=== PATIENT | female | born 1960 | race Asian ===

== ENCOUNTER 2017-06-09 07:10 | Inpatient (IN) | payer OTHER ==
[2017-06-09] MEDS: CEFAZOLIN 2 GM/50 ML (PMX) 50 ML IVPB (06:00)
[2017-06-09] MEDS: SOD CHLORIDE 0.9% 1,000 ML IV ×2 (06:00→18:45)
[2017-06-09] MEDS ORDERED: ISOSULFAN BLUE 1% 5 ML INJ SC (10:57)
[2017-06-09] MEDS ORDERED: MIDAZOLAM 1 MG/ML 2 ML INJ (11:27)
[2017-06-09] MEDS ORDERED: PROPOFOL 0 ML (11:32)
[2017-06-09] MEDS ORDERED: SUCCINYLCHOLINE CHLORIDE 100 MG/5 ML SYG IV (11:32)
[2017-06-09] MEDS ORDERED: FENTAnyl 50 MCG/ML VIAL (11:33)
[2017-06-09 14:06] LABS: MAGNESIUM 1.6 mg/dl (1.7-2.5)
[2017-06-09 14:26] LABS: TROPONIN-I 0.033 ng/ml (0.00-0.12)
[2017-06-09 14:29] LABS: ANION GAP 17 (8-16); BLOOD UREA NITROGEN 19 mg/dl (7-20); CARBON DIOXIDE 28 mmol/L (21-31); CHLORIDE 105 mmol/L (97-110); GLUCOSE 156 mg/dl (70-220); POTASSIUM 3.5 mmol/L (3.5-5.1); SODIUM 146 mmol/L (135-144)
[2017-06-09 14:30] LABS: CALCIUM 9.4 mg/dl (8.4-10.2); CREATININE 1.39 mg/dl (0.44-1.00)
[2017-06-09] MEDS: MAGNESIUM SULFATE 4 GM/100 ML 100 ML IVPB (14:41)
[2017-06-09] MEDS: POTASSIUM CHLORIDE (SR) 20 MEQ TAB PO (15:57)
[2017-06-09] MEDS ORDERED: metFORMIN 500 MG TAB PO (18:05)
[2017-06-09] MEDS: CEFAZOLIN 1 GM/50 ML (PMX) 50 ML IVPB (18:43)
[2017-06-09] MEDS: metFORMIN 500 MG TAB PO (18:43)
[2017-06-09] MEDS: LISINOPRIL 5 MG TAB PO (18:44)
[2017-06-09] MEDS: FERROUS SULFATE (EC) 325 MG TAB PO (21:09)
[2017-06-10] MEDS: CEFAZOLIN 1 GM/50 ML (PMX) 50 ML IVPB ×4 (00:39→17:36)
[2017-06-10] MEDS ORDERED: metFORMIN 500 MG TAB PO (08:00)
[2017-06-10 08:41] LABS: ADD MAN DIFF? NO
[2017-06-10 08:47] LABS: BASOPHILS % 0.2 % (0.0-2.0); EOSINOPHILS # 0.1 10^3/ul (0.0-0.5); EOSINOPHILS % 1.4 % (0.0-7.0); HEMATOCRIT 44.4 % (37.0-47.0); HEMOGLOBIN 14.3 g/dl (12.0-16.0); LYMPHOCYTES # 1.5 10^3/ul (0.8-2.9); MEAN CORPUSCULAR HEMOGLOBIN 29.2 pg (29.0-33.0); MEAN CORPUSCULAR HGB CONC 32.2 g/dl (32.0-37.0); MEAN CORPUSCULAR VOLUME 90.8 fl (82.0-101.0); MONOCYTE # 0.6 10^3/ul (0.3-0.9); MONOCYTES % 9.3 % (0.0-11.0); NEUTROPHIL # 3.8 10^3/ul (1.6-7.5); NEUTROPHILS % 63.8 % (39.0-77.0); PLATELET COUNT 145 10^3/UL (140-415); RED BLOOD COUNT 4.89 10^6/ul (4.20-5.40); RED CELL DISTRIBUTION WIDTH 12.6 % (11.5-14.5)
[2017-06-10 08:47] LABS: WHITE BLOOD COUNT 5.9 10^3/ul (4.8-10.8)
[2017-06-10] MEDS: LISINOPRIL 5 MG TAB PO (08:58)
[2017-06-10] MEDS: metFORMIN 500 MG TAB PO ×2 (08:58→12:23)
[2017-06-10] MEDS: ASPIRIN 81 MG TAB PO (08:58)
[2017-06-10] MEDS: METOPROLOL (XL) 100 MG TAB PO (08:58)
[2017-06-10] MEDS: FUROSEMIDE 40 MG TAB PO (08:59)
[2017-06-10] MEDS: FERROUS SULFATE (EC) 325 MG TAB PO ×3 (08:59→20:58)
[2017-06-10] MEDS: AMLODIPINE 10 MG TAB PO (08:59)
[2017-06-10 09:08] LABS: INR 1.06; PROTIME 13.9 Sec (11.9-14.9); PT RATIO 1.1
[2017-06-10 09:09] LABS: PARTIAL THROMBOPLASTIN TIME 34.4 Sec (25.0-35.0)
[2017-06-10 09:24] LABS: FREE T4 (FREE THYROXINE) 1.48 ng/dl (0.64-1.79)
[2017-06-10 09:46] LABS: ALANINE AMINOTRANSFERASE 22 IU/L (13-69); ALBUMIN 3.7 g/dl (3.3-4.9); ALBUMIN/GLOBULIN RATIO 1.02; ALKALINE PHOSPHATASE 82 IU/L (42-121); ANION GAP 16 (8-16); ASPARTATE AMINO TRANSFERASE 29 IU/L (15-46); BILIRUBIN,INDIRECT 0.6 mg/dl (0-1.1); BILIRUBIN,TOTAL 0.6 mg/dl (0.2-1.3); BLOOD UREA NITROGEN 14 mg/dl (7-20); CALCIUM 9.2 mg/dl (8.4-10.2); CARBON DIOXIDE 27 mmol/L (21-31); CHLORIDE 107 mmol/L (97-110); CREATININE 1.26 mg/dl (0.44-1.00); GLUCOSE 126 mg/dl (70-220); MAGNESIUM 2.2 mg/dl (1.7-2.5); POTASSIUM 3.7 mmol/L (3.5-5.1); SODIUM 146 mmol/L (135-144); TOTAL PROTEIN 7.3 g/dl (6.1-8.1)
[2017-06-10 09:51] LABS: B-TYPE NATRIURETIC PEPTIDE 394 PG/ML (0-125)
[2017-06-10 10:35] LABS: THYROID STIMULATING HORMONE 0.525 MIU/L (0.465-4.680)
[2017-06-11] MEDS: CEFAZOLIN 1 GM/50 ML (PMX) 50 ML IVPB ×4 (00:58→17:24)
[2017-06-11] MEDS: metFORMIN 500 MG TAB PO ×2 (08:09→17:24)
[2017-06-11] MEDS: FERROUS SULFATE (EC) 325 MG TAB PO ×3 (08:09→20:18)
[2017-06-11] MEDS: AMLODIPINE 10 MG TAB PO (08:09)
[2017-06-11] MEDS: FUROSEMIDE 40 MG TAB PO (08:09)
[2017-06-11] MEDS: LISINOPRIL 5 MG TAB PO (08:09)
[2017-06-11] MEDS: METOPROLOL (XL) 100 MG TAB PO (08:09)
[2017-06-12] MEDS: CEFAZOLIN 1 GM/50 ML (PMX) 50 ML IVPB ×5 (01:31→23:24)
[2017-06-12 06:14] LABS: ADD MAN DIFF? NO
[2017-06-12 06:27] LABS: BASOPHILS % 0.3 % (0.0-2.0); EOSINOPHILS # 0.1 10^3/ul (0.0-0.5); EOSINOPHILS % 1.9 % (0.0-7.0); HEMATOCRIT 45.2 % (37.0-47.0); HEMOGLOBIN 14.9 g/dl (12.0-16.0); LYMPHOCYTES # 1.4 10^3/ul (0.8-2.9); LYMPHOCYTES % 20.7 % (15.0-51.0); MEAN CORPUSCULAR HEMOGLOBIN 29.3 pg (29.0-33.0); MEAN CORPUSCULAR VOLUME 88.8 fl (82.0-101.0); MEAN PLATELET VOLUME 11.4 fl (7.4-10.4); MONOCYTE # 0.8 10^3/ul (0.3-0.9); MONOCYTES % 10.8 % (0.0-11.0); NEUTROPHIL # 4.6 10^3/ul (1.6-7.5); NEUTROPHILS % 65.9 % (39.0-77.0); PLATELET COUNT 152 10^3/UL (140-415); RED BLOOD COUNT 5.09 10^6/ul (4.20-5.40); RED CELL DISTRIBUTION WIDTH 12.4 % (11.5-14.5)
[2017-06-12 06:42] LABS: ANION GAP 16 (8-16); BLOOD UREA NITROGEN 16 mg/dl (7-20); CALCIUM 9.6 mg/dl (8.4-10.2); CARBON DIOXIDE 30 mmol/L (21-31); CHLORIDE 102 mmol/L (97-110); CREATININE 1.34 mg/dl (0.44-1.00); GLUCOSE 131 mg/dl (70-220); POTASSIUM 3.7 mmol/L (3.5-5.1); SODIUM 144 mmol/L (135-144)
[2017-06-12] MEDS ORDERED: LIDOCAINE 2% (SDV) 5 ML INJ (07:00)
[2017-06-12] MEDS ORDERED: ROCURONIUM 50 MG INJ (07:00)
[2017-06-12] MEDS ORDERED: CEFAZOLIN 1 GM INJ (07:00)
[2017-06-12] MEDS ORDERED: PROPOFOL 200 MG INJ (07:00)
[2017-06-12 07:08] LABS: ALANINE AMINOTRANSFERASE 24 IU/L (13-69); ALBUMIN 3.9 g/dl (3.3-4.9); ALBUMIN/GLOBULIN RATIO 1.02; ALKALINE PHOSPHATASE 85 IU/L (42-121); ANION GAP 17 (8-16); ASPARTATE AMINO TRANSFERASE 31 IU/L (15-46); BILIRUBIN,INDIRECT 0.8 mg/dl (0-1.1); BILIRUBIN,TOTAL 0.8 mg/dl (0.2-1.3); BLOOD UREA NITROGEN 16 mg/dl (7-20); CALCIUM 9.5 mg/dl (8.4-10.2); CARBON DIOXIDE 31 mmol/L (21-31); CHLORIDE 101 mmol/L (97-110); CREATININE 1.36 mg/dl (0.44-1.00); GLUCOSE 130 mg/dl (70-220); POTASSIUM 3.6 mmol/L (3.5-5.1); SODIUM 145 mmol/L (135-144); TOTAL PROTEIN 7.7 g/dl (6.1-8.1)
[2017-06-12] MEDS: FERROUS SULFATE (EC) 325 MG TAB PO ×3 (09:00→20:11)
[2017-06-12] MEDS ORDERED: ISOSULFAN BLUE 1% 5 ML INJ SC (09:21)
[2017-06-12] MEDS ORDERED: morphine 10 MG INJ (09:45)
[2017-06-12] MEDS ORDERED: METOCLOPRAMIDE 10 MG INJ IV (10:00)
[2017-06-12] MEDS ORDERED: FENTAnyl 50 MCG/ML VIAL IV ×3 (10:00)
[2017-06-12] MEDS ORDERED: hydrALAzine 20 MG INJ IV (10:00)
[2017-06-12] MEDS ORDERED: HYDROmorphONE (0.2 MG/ML) 10ML SYG IV ×3 (10:00)
[2017-06-12] MEDS ORDERED: DIPHENHYDRAMINE 50 MG INJ IV (10:00)
[2017-06-12] MEDS ORDERED: LABETALOL HCL 20MG INJ IV (10:00)
[2017-06-12] MEDS ORDERED: EPHEDrine SULFATE 50 MG/5 ML SYG IV (10:00)
[2017-06-12] MEDS ORDERED: ALBUTEROL 0.083% (NEB) 2.5 MG/3 ML AMP HHN (10:00)
[2017-06-12] MEDS ORDERED: KETOROLAC 30 MG INJ IV (10:00)
[2017-06-12] MEDS: ISOSULFAN BLUE 1% 5 ML INJ SC (10:10)
[2017-06-12] MEDS ORDERED: PHENYLephrine (100 MCG/ML) 5ML SYG (10:11)
[2017-06-12] MEDS ORDERED: ONDANSETRON 4 MG INJ (10:36)
[2017-06-12] MEDS ORDERED: DEXAMETHASONE 4 MG/ML 1 ML INJ (10:36)
[2017-06-12] MEDS ORDERED: SUGAMMADEX SODIUM 200 MG/2 ML VIAL IV (11:02)
[2017-06-12] MEDS ORDERED: ONDANSETRON 4 MG INJ IV (11:30)
[2017-06-12] MEDS ORDERED: ACETAMINOPHEN 1000MG/100ML IV 100 ML IVPB (11:30)
[2017-06-12] MEDS: ONDANSETRON 4 MG INJ IV (11:35)
[2017-06-12] MEDS: MEPERIDINE 25 MG INJ IV (11:39)
[2017-06-12] MEDS: metFORMIN 500 MG TAB PO ×2 (13:23→18:30)
[2017-06-12] MEDS: METOPROLOL (XL) 100 MG TAB PO (13:24)
[2017-06-12] MEDS: AMLODIPINE 10 MG TAB PO (13:24)
[2017-06-12] MEDS: FUROSEMIDE 40 MG TAB PO (13:25)
[2017-06-12] MEDS: LISINOPRIL 5 MG TAB PO (13:26)
[2017-06-12] MEDS: D5W-0.45 NACL + KCL 20 MEQ 1,000 ML IV ×3 (13:29→23:25)
[2017-06-12] MEDS: POTASSIUM CHLORIDE (SR) 20 MEQ TAB PO (18:31)
[2017-06-13] MEDS: D5W-0.45 NACL + KCL 20 MEQ 1,000 ML IV (03:15)
[2017-06-13] MEDS: CEFAZOLIN 1 GM/50 ML (PMX) 50 ML IVPB (05:23)
[2017-06-13] MEDS: FERROUS SULFATE (EC) 325 MG TAB PO ×3 (09:01→20:18)
[2017-06-13] MEDS: metFORMIN 500 MG TAB PO ×2 (09:02→18:17)
[2017-06-13] MEDS: FUROSEMIDE 40 MG TAB PO (09:03)
[2017-06-13] MEDS: LISINOPRIL 5 MG TAB PO (09:04)
[2017-06-13] MEDS: AMLODIPINE 10 MG TAB PO (09:04)
[2017-06-13] MEDS: METOPROLOL (XL) 100 MG TAB PO (09:05)
[2017-06-13 17:33] LABS: ANION GAP 22 (8-16); BLOOD UREA NITROGEN 27 mg/dl (7-20); CALCIUM 9.7 mg/dl (8.4-10.2); CARBON DIOXIDE 20 mmol/L (21-31); CHLORIDE 102 mmol/L (97-110); CREATININE 1.91 mg/dl (0.44-1.00); GLUCOSE 138 mg/dl (70-220); MAGNESIUM 1.7 mg/dl (1.7-2.5); POTASSIUM 4.7 mmol/L (3.5-5.1); SODIUM 139 mmol/L (135-144)
[2017-06-13] MEDS: MAGNESIUM SULFATE 2 GM/50 ML 50 ML IVPB (18:16)
[2017-06-13] MEDS: SOD CHLORIDE 0.45% 1,000 ML IV (18:22)
[2017-06-14] MEDS: SOD CHLORIDE 0.45% 1,000 ML IV (06:21)
[2017-06-14 08:46] LABS: ADD MAN DIFF? NO
[2017-06-14] MEDS: FERROUS SULFATE (EC) 325 MG TAB PO ×2 (08:51→12:10)
[2017-06-14] MEDS: LISINOPRIL 5 MG TAB PO (08:52)
[2017-06-14] MEDS: METOPROLOL (XL) 100 MG TAB PO ×2 (08:52→09:03)
[2017-06-14] MEDS: AMLODIPINE 10 MG TAB PO (08:52)
[2017-06-14 08:53] LABS: BASOPHILS % 0.2 % (0.0-2.0); EOSINOPHILS # 0.1 10^3/ul (0.0-0.5); EOSINOPHILS % 0.5 % (0.0-7.0); HEMATOCRIT 46.3 % (37.0-47.0); HEMOGLOBIN 15.3 g/dl (12.0-16.0); LYMPHOCYTES # 1.7 10^3/ul (0.8-2.9); LYMPHOCYTES % 15.6 % (15.0-51.0); MEAN CORPUSCULAR HEMOGLOBIN 29.4 pg (29.0-33.0); MEAN PLATELET VOLUME 11.6 fl (7.4-10.4); MONOCYTE # 0.6 10^3/ul (0.3-0.9); MONOCYTES % 5.4 % (0.0-11.0); NEUTROPHIL # 8.6 10^3/ul (1.6-7.5); PLATELET COUNT 196 10^3/UL (140-415); RED CELL DISTRIBUTION WIDTH 13.1 % (11.5-14.5)
[2017-06-14] MEDS: metFORMIN 500 MG TAB PO ×2 (08:53→17:34)
[2017-06-14 09:26] LABS: ANION GAP 17 (8-16); BLOOD UREA NITROGEN 33 mg/dl (7-20); CALCIUM 9.5 mg/dl (8.4-10.2); CARBON DIOXIDE 29 mmol/L (21-31); CHLORIDE 100 mmol/L (97-110); CREATININE 1.73 mg/dl (0.44-1.00); GLUCOSE 108 mg/dl (70-220); MAGNESIUM 2.2 mg/dl (1.7-2.5); POTASSIUM 4.1 mmol/L (3.5-5.1); SODIUM 142 mmol/L (135-144)
[2017-06-14] MEDS: morphine 2 MG INJ IV (10:30)
[2017-06-14] MEDS ORDERED: ACETAMINOPHEN 500 MG TAB PO (16:00)
== END 2017-06-14 19:23 | disposition home or self-care (01) | DRG 264 ==
LOC: SDS 07:10 → MS3 06-14 05:41 → SDS 07:10 → MS4 06-14 11:43 → REC 14:32 → MS4 17:15
PROVIDERS: Surgery Surgical Oncology
PROC: 0HBT0ZZ Excision of Right Breast, Open Approach (ICD-10-PCS; principal; 2017-06-09 11:25)
PROC: 07B50ZX Excision of Right Axillary Lymphatic, Open Approach, Diagnostic (ICD-10-PCS; 2017-06-09 11:25)
DX: I49.8 Other specified cardiac arrhythmias (principal); I27.20 Pulmonary hypertension, unspecified; Z68.43 Body mass index [BMI] 50.0-59.9, adult; I11.0 Hypertensive heart disease with heart failure; I50.32 Chronic diastolic (congestive) heart failure; E83.42 Hypomagnesemia; E66.01 Morbid (severe) obesity due to excess calories; C50.911 Malignant neoplasm of unspecified site of right female breast; E11.9 Type 2 diabetes mellitus without complications; J45.909 Unspecified asthma, uncomplicated; E87.6 Hypokalemia; Z53.09 Procedure and treatment not carried out because of other contraindication; E78.5 Hyperlipidemia, unspecified
CPT/HCPCS: 71045; 80048; 80053; 82962; 83735; 83880; 84439; 84443; 84484; 85025; 85610; 85730; 88309; 93005; 93306